=== PATIENT | female | born 1960 | race Caucasian/White ===

== ENCOUNTER 2016-05-04 08:33 | Day surgery (SDC) | payer OTHER ==
[2016-05-03 13:34] VITALS: BMI 28.9
[2016-05-04] VITALS (11 sets, daily range): BP systolic 104–138; BP diastolic 56–84; PULSE 64–108; RESP 11–19; Ht 149.9 cm; Wt 63.6 kg
[~2016-05-04] VITALS: Ht 149.9 cm; Wt 63.6 kg
--- NOTE | 2016-05-04 08:05 | PREOPHP ---
DATE OF ADMISSION: 05/04/2016 HISTORY OF PRESENT ILLNESS: This 56-year-old patient is admitted for cataract surgery of a mature c ataract in the right eye. The patient has had poor vision in the right eye over the past 3 years th at the patient has been seen in my office patient. The patient and caregiver deny any prior history of eye disease or injury. The patient does have a history of Down syndrome, non-insulin dependent d iabetes mellitus, hypothyroid and gallstones. CURRENT MEDICATIONS INCLUDE: 1. Metformin. 2. Prilosec. 3. Levothyroxine. ALLERGIES: THERE ARE NO KNOWN ALLERGIES. PHYSICAL EXAMINATION: The visual acuity is light perception in the right eye and finger counting at 15 feet in the left eye. Slit lamp examination reveals a mature cataract in the right eye. Examin ation of the retina in the right eye is obscured by the mature cataract. The left eye appears withi n normal limits. DIAGNOSIS: Mature cataract, right eye. PLAN: Cataract extraction with lens implant, right eye. This surgery will be performed under gener al anesthesia. The risks and alternatives to the surgery have been discussed with the patient and rinku valente has opted to proceed with surgery. Dictated By: CLEMENTINA SMITH/OTILIO Conf#: [id number] DID#: [id number]
[~2016-05-04 08:33] MED LIST: FLUT16SP24 NASAL; LEVO50TA83 PO; METF500T4 PO; OMEP20CA16 PO
[2016-05-04] MEDS ORDERED: DIPHENHYDRAMINE 50 MG INJ IV PRN (10:30)
[2016-05-04] MEDS ORDERED: ONDANSETRON 4 MG INJ IV PRN (10:30)
[2016-05-04] MEDS ORDERED: OXYCODONE/ACETAMINOPHEN (5/325) TAB PO PRN ×2 (10:30)
[2016-05-04] MEDS ORDERED: FENTAnyl 50 MCG/ML VIAL IV PRN ×2 (10:30)
[2016-05-04] MEDS ORDERED: morphine (1 MG/ML) 10ML SYRINGE IV PRN ×3 (10:30)
[2016-05-04] MEDS ORDERED: hydrALAzine 20 MG INJ IV PRN (10:30)
[2016-05-04] MEDS ORDERED: MEPERIDINE 25 MG INJ IV PRN (10:30)
[2016-05-04] MEDS ORDERED: MIDAZOLAM 1 MG/ML 2 ML INJ IV PRN (10:30)
[2016-05-04] MEDS ORDERED: TROPICAMIDE 1% 2 ML OPH OPER SCH (10:30)
[2016-05-04] MEDS ORDERED: ATROPINE 1 MG/10 ML SYRINGE IV PRN (10:30)
[2016-05-04] MEDS ORDERED: CIPROFLOXACIN 0.3% 2.5 ML OPH OPER SCH (10:30)
[2016-05-04] MEDS ORDERED: DICLOFENAC 0.1% 2.5 ML OPH OPER SCH (10:30)
[2016-05-04] MEDS ORDERED: HYDROmorphONE (0.2 MG/ML) 10ML SYG IV PRN ×3 (10:30)
[2016-05-04] MEDS ORDERED: EPHEDrine SULFATE 50 MG/5 ML SYG IV PRN (10:30)
[2016-05-04] MEDS ORDERED: CYCLOPENTOLATE/PHENYLEPH 2 ML OPH OPER SCH (10:30)
[2016-05-04] MEDS ORDERED: PROPOFOL 20 ML ONE (12:08)
[2016-05-04] MEDS ORDERED: LIDOCAINE 2% (SDV) 5 ML INJ ONE (12:08)
[2016-05-04] MEDS ORDERED: GLYCOPYRROLATE 0.4 MG INJ ONE (12:08)
[2016-05-04] MEDS ORDERED: NEOSTIGMINE 3 MG/3 ML SYRINGE ONE (12:08)
[2016-05-04] MEDS ORDERED: ROCURONIUM 50 MG INJ ONE (12:08)
[2016-05-04] MEDS ORDERED: MIDAZOLAM 1 MG/ML 2 ML INJ ONE (12:09)
[2016-05-04] MEDS ORDERED: FENTAnyl 50 MCG/ML VIAL ONE (12:09)
[2016-05-04] MEDS ORDERED: CARBACHOL 0.01% 1.5 ML OPH INJ INJ ONE (12:50)
[2016-05-04] MEDS ORDERED: CEFAZOLIN 1 GM INJ INJ ONE (12:50)
[2016-05-04] MEDS ORDERED: DEXAMETHASONE 4 MG/ML 1 ML INJ INJ ONE (12:50)
[2016-05-04] MEDS ORDERED: HYALURONATE/CHONDROITIN 1ML OPH INJ ONE (13:12)
[2016-05-04] MEDS ORDERED: DEXAMETHASONE 4 MG/ML 1 ML INJ ONE (13:12)
[2016-05-04] MEDS ORDERED: LIDOCAINE 4% (MPF) 5 ML INJ ONE (13:12)
[2016-05-04] MEDS ORDERED: CARBACHOL 0.01% 1.5 ML OPH INJ ONE (13:12)
--- NOTE | 2016-05-04 14:57 | OPR ---
DATE OF OPERATION: 05/04/2016 PREOPERATIVE DIAGNOSIS: Mature cataract, right eye. POSTOPERATIVE DIAGNOSIS: Mature cataract, right eye. SURGEON: Clementina Kyle MD COMMUNITY SUPPORT ASSOCIATE: ANESTHESIA: General. ANESTHESIOLOGIST: Dr. Cullen OPERATION: Cataract extraction with lens implants, right eye. PROCEDURE: The patient was brought to the operating room on an eye gurney, attached to monitors, an d then given general anesthesia via endotracheal intubation. Following this, patient was positioned for cataract surgery. After some intravenous sedation was administered, local anesthesia was given using Xylocaine 2% with epinephrine, mixed with Marcaine 0.5%. This was given in a lid block and retrobulbar injection. The patient was then prepped and draped in the usual sterile manner. A wire lid speculum was inserted between the lids of the right eye. A SuperBlade was used to enter t he anterior chamber at the corneoscleral limbus at the 10:30 o'clock position. A separate incision w as made using a 3.0-mm keratome which entered the corneoscleral junction at the 12 o'clock position. Through this 3-mm opening, an irrigating cystotome was introduced into the anterior chamber. The ch jamie was filled with Viscoat and an anterior capsulotomy was performed. Balanced salt solution was then used for hydrodissection of the lens. A phacoemulsification was attempted; however, it was not ed that there was a solid nucleus which did not respond to the higher setting of ultrasonic power to emulsify the lens nucleus. It was, therefore, decided to open the corneal incision to approximatel y 7 mm and then use a lens loop to remove the mature cataract en bloc. Following this, 3 peripheral 10-0 nylon sutures were placed and were tied. The ends were cut short. After this, attention was paid to residual lens cortical material which was aspirated using irrigation/aspiration setting. Th e central posterior capsule appeared clear, and at this point, the posterior chamber intraocular devang s measuring 23.5 diopters ([employer] model LI61AO) was inserted under DisCoVisc in to the posterior chamber with the lens haptics placed beneath the lens capsule. The lens centered w ell and remained stable. A 4th 10-0 nylon suture was then placed across the wound and was tied with the ends cut short. All the nylon sutured knots were buried in the cornea. At the end of the proc edure, Miostat was instilled to constrict the pupil, and then 0.5 mL of Ancef and 0.5 mL of dexameth asone were injected into the subconjunctival space inferiorly. The speculum was removed. Vigamox d rops placed on the surface of the eye, and the eye was patched. The patient left the operating room in satisfactory condition. Dictated By: CLEMENTINA SMITH/OTILIO Conf#: [id number] DID#: [id number]
[2016-05-04] MEDS ORDERED: LABETALOL HCL 20MG INJ IV PRN (15:00)
== END 2016-05-04 14:50 | disposition home or self-care (01) ==
LOC: SDS 08:33
PROVIDERS: ATTEND Ophthalmology
DX: H26.8 Other specified cataract (principal); E03.9 Hypothyroidism, unspecified; E11.9 Type 2 diabetes mellitus without complications
CPT/HCPCS: 66984; 82962; J0690; J1100; J2250; J2710; J3010; V2632; Z7512; Z7610

== ENCOUNTER 2018-04-18 05:54 | Day surgery (SDC) | payer OTHER ==
[2018-04-14 17:58] VITALS: Ht 149.9 cm; Wt 60.9 kg
--- NOTE | 2018-04-17 12:36 | PREOPHP ---
DATE OF ADMISSION: 04/18/2018 HISTORY OF PRESENT ILLNESS: This 58-year-old patient is admitted for elective cataract surgery of th e left eye. This patient is a Down syndrome patient who has had a mature cataract in both eyes with the right eye operated on 2 years ago with a good visual result. The patient does not have any other history of eye disease or injury. PAST MEDICAL HISTORY: The patient's other medical problems include GERD, hypothyroidism, allergic rh initis and Down syndrome. PRESENT MEDICATION: Include: 1. Fluticasone nasal suspension. 2. Levothyroxine. 3. Metformin. 4. Omeprazole. ALLERGIES: THERE ARE NO KNOWN ALLERGIES. PHYSICAL EXAMINATION: Visual acuity is difficult to ascertain, but patient has ability to discern mo derate size print with the right eye. The left eye has light perception vision. Slit lamp examinati on reveals a posterior chamber intraocular lens in the right eye and a mature cataract in the left ey e. Applanation tonometry is 12 mm. Examination of the retina in the right eye is within normal limi ts. In the left eye, there is no view. DIAGNOSIS: Mature cataract, left eye. PLAN: Cataract extraction with lens implant of left eye to be done under general anesthesia. The ri sks and alternatives to the surgery have been discussed with the patient's family and the patient and they have agreed to proceed with surgery in hopes of improving visual acuity leading to greater abil ity to perform activities of daily living. Dictated By: CLEMENTINA SMITH/OTILIO Conf#: [id number] DID#: [id number]
[~2018-04-18] VITALS: Ht 149.9 cm; Wt 60.9 kg
[2018-04-18] VITALS (13 sets, daily range): BP systolic 80–110; BP diastolic 42–67; PULSE 77–96; RESP 13–18
[~2018-04-18 05:54] MED LIST changes: -LEVO50TA83 PO; +LEVO50TA89 PO; +METF-849 PO; -METF500T4 PO
[2018-04-18] MEDS ORDERED: SOD CHLORIDE 0.9% 1,000 ML IV SCH (06:00)
[2018-04-18] MEDS ORDERED: TROPICAMIDE 1% 15 ML OPH OPER SCH (06:00)
[2018-04-18] MEDS ORDERED: MOXIFLOXACIN 0.5% 3 ML OPH OPER SCH (06:00)
[2018-04-18] MEDS ORDERED: CYCLOPENTOLATE/PHENYLEPH 2 ML OPH OPER SCH (06:00)
[2018-04-18] MEDS ORDERED: DICLOFENAC 0.1% 2.5 ML OPH OPER SCH (06:00)
[2018-04-18] MEDS ORDERED: TETRACAINE 0.5% 4 ML OPH ONE (06:44)
[2018-04-18] MEDS ORDERED: CARBACHOL 0.01% 1.5 ML OPH INJ ONE (06:44)
[2018-04-18] MEDS ORDERED: EPINEPHrine 1 MG INJ ONE (06:45)
[2018-04-18] MEDS ORDERED: DEXAMETHASONE 4 MG/ML 1 ML INJ ONE (06:45)
[2018-04-18] MEDS ORDERED: GENTAMICIN 80 MG INJ ONE (06:45)
[2018-04-18] MEDS ORDERED: LIDOCAINE 4% (MPF) 5 ML INJ ONE (06:46)
[2018-04-18] MEDS ORDERED: EPHEDrine SULFATE 50 MG/5 ML SYG ONE (07:00)
[2018-04-18] MEDS ORDERED: SEVOFLURANE 15 MIN ONE (07:00)
--- NOTE | 2018-04-18 07:32 | PREAC ---
Date/Time of Note Date/Time of Note DATE: 04/18/18 TIME: 07:29 Anesthesia Eval and Record Evaluation Time Pre-Procedure Interview DATE: 04/18/18 TIME: 07:20 Age 58 Sex female NPO: 8 hrs Preoperative diagnosis Left Eye Cataract Planned procedure Left Eye Cataract Extraction Past Medical History Past Medical History: Includes Endo: Diabetes, Hypothyroid Neuro: Other (metal retardation) GI: GERD Psych: Anxiety Surgery & Anesthesia Issues No known issue Meds Anticoagulation: No Beta Román within 24 hr: No Reason Beta Román not given: Pt. not on B-Román Reported Medications Fluticasone Propionate* (Flonase* Nasal) 16 Gm [place].susp, 2 SPRAY NASAL DAILY, SPRAY TO EACH NOSTRIL 09/24/13 Levothyroxine Sodium* (Synthroid*) 50 Mcg Tablet, 50 MCG PO AC BREAKFAST, TAB 09/24/13 Metformin* (Glucophage*) 500 Mg Tab, 500 MG PO WITH BREAKFAST, TAB 09/24/13 Omeprazole* (Omeprazole*) 20 Mg Capsule.dr, 20 MG PO DAILY 09/24/13 Current Medications Diclofenac Sodium (Voltaren 0.1%) 1 drop Q5 MIN X 3 OPER Last administered on 04/18/18at 06:35; Admin Dose 1 DROP; Start 04/18/18 at 06:00 Tropicamide (Mydriacyl 1%) 1 drop Q5 MIN X3 OPER Last administered on 04/18/18at 06:35; Admin Dose 1 DROP; Start 04/18/18 at 06:00 Moxifloxacin HCl (Vigamox) 1 drop Q5 MIN X 3 OPER Last administered on 04/18/18at 06:35; Admin Dose 1 DROP; Start 04/18/18 at 06:00 Cyclopentolate/ Phenylephrine (Cyclomydril Oph 2 ml) 1 drop Q5 MIN X 3 OPER Last administered on 04/18/18at 06:34; Admin Dose 1 DROP; Start 04/18/18 at 06:00 Sodium Chloride 1,000 ml @ 25 mls/hr Q24H IV Last administered on 04/18/18at 06:36; Admin Dose 25 MLS/HR; Start 04/18/18 at 06:00 Meds reviewed: Yes Allergies Coded Allergies: No Known Allergy (Unverified , 04/18/18) Allergies Reviewed: Yes Labs/Studies Labs Reviewed: Reviewed by anesthesiologist test: N/A Studies: ECG (n/a), CXR (n/a) Pre-procedure Exam Last vitals Vital Signs Date Temp Pulse Resp B/P (MAP) Pulse Ox O2 O2 Flow FiO2 Time Delivery Rate 04/18/18 98.1 77 18 110/67 98 Room Air 06:07 (81) Airway: Adequate mouth opening, Adequate thyromental dist Mallampati: Mallampati II Teeth: Normal Lung: Normal Heart: Normal ASA Physical Status ASA physical status: 3 Emergency: None Planned Anesthetic General/MAC: LMA Planned Pain Management Parenteral pain med Pre-operative Attestations Prior to commencing anesthesia and surgery, the patient was re-evaluated, there was verification of: *The patient's identity *The results of appropriate recent lab work and preoperative vital signs *The above evaluation not changing prior to induction *Anesthetic plan, risk benefits, alternative and complications discussed with patient/family; questions answered; patient/family understands, accepts and wishes to proceed. AMBER CARRINGTON MD Apr 18, 2018 07:32
[2018-04-18] MEDS ORDERED: PROPOFOL 20 ML ONE (07:36)
[2018-04-18] MEDS ORDERED: MIDAZOLAM 1 MG/ML 2 ML INJ ONE (07:37)
[2018-04-18] MEDS ORDERED: FENTAnyl 50 MCG/ML VIAL ONE (07:37)
[2018-04-18] MEDS ORDERED: PHENYLephrine (100 MCG/ML) 5ML SYG ONE (07:44)
[2018-04-18] MEDS ORDERED: METOCLOPRAMIDE 10 MG INJ ONE (07:54)
[2018-04-18] MEDS ORDERED: ONDANSETRON 4 MG INJ ONE (07:54)
[2018-04-18] MEDS ORDERED: ONDANSETRON 4 MG INJ IV PRN (08:00)
[2018-04-18] MEDS ORDERED: EPHEDrine SULFATE 50 MG/5 ML SYG IV PRN (08:00)
[2018-04-18] MEDS ORDERED: LABETALOL HCL 20MG INJ IV PRN (08:00)
[2018-04-18] MEDS ORDERED: FENTAnyl 50 MCG/ML VIAL IV PRN ×2 (08:00)
[2018-04-18] MEDS ORDERED: OXYCODONE/ACETAMINOPHEN (5/325) TAB PO PRN (08:00)
[2018-04-18] MEDS ORDERED: MEPERIDINE 25 MG INJ IV PRN (08:00)
[2018-04-18] MEDS ORDERED: METOCLOPRAMIDE 10 MG INJ IV PRN (08:00)
[2018-04-18] MEDS ORDERED: HYDROmorphONE 1 MG/5 ML IV SYRINGE IV PRN ×2 (08:00)
--- NOTE | 2018-04-18 08:14 | SIPON ---
Date/Time of Note Date/Time of Note DATE: 04/18/18 TIME: 08:13 Operative Report Preoperative Diagnosis mature cataract os Postoperative Diagnosis same Operation/Procedure Performed cataractg extraction wsith lens implant os Surgeon clementina gomez hotel assistant manager none Anesthesia: general Estimated blood loss: none Transfusion Required none Specimen none Grafts/Implants posterior chamber lens implant os Complications none CLEMENTINA GOMEZ MD Apr 18, 2018 08:14
--- NOTE | 2018-04-18 08:16 | PAC ---
Date/Time of Note Date/Time of Note DATE: 04/18/18 TIME: 08:15 Post-Anesthesia Notes Post-Anesthesia Note Last documented vital signs Vital Signs Date Temp Pulse Resp B/P (MAP) Pulse Ox O2 O2 Flow FiO2 Time Delivery Rate 04/18/18 98.1 77 18 110/67 98 Room Air 08:17 (81) Activity: WNL Respiratory function: WNL Cardiovascular function: WNL Mental status: Baseline Pain reasonably controlled: Yes Hydration appropriate: Yes Nausea/Vomiting absent: Yes AMBER CARRINGTON MD Apr 18, 2018 08:16
[2018-04-18] MEDS ORDERED: CEFAZOLIN 1 GM INJ INJ ONE (08:52)
--- NOTE | 2018-04-18 12:58 | OPR ---
DATE OF OPERATION: 04/18/2018 PREOPERATIVE DIAGNOSIS: Mature cataract, left eye. POSTOPERATIVE DIAGNOSIS: Mature cataract, left eye. OPERATION PERFORMED: Cataract extraction with lens implant, left eye. SURGEON: Clementina Kyle MD. ANESTHESIA: General anesthesia. PROCEDURE: The patient was brought to the operating room and placed on the table with an IV in place and the patient attached to an color television console monitor. Oxygen was given via face mask. After some intravenous sedation was administered, local anesthesia was given using Xylocaine 2% with epinephrine, mixed with Marcaine 0.5%. This was given in a lid block and retrobulbar injection. The p atient was then prepped and draped in the usual sterile manner. A wire lid speculum was inserted between the lids of the left eye. A Superblade was used to enter the anterior chamber at the corneoscleral limbus at the 10:30 o'clock position. A separate incision was made using a 3.0-mm keratome which entered the corneoscleral junction at the 12 o'clock position. Thr ough this 3-mm opening, an irrigating cystotome was introduced into the anterior chamber. The chamber was filled with Viscoat and an anterior capsulotomy was performed. Balanced salt solution was then u sed for hydrodissection of the lens. A phacoemulsification handpiece was then brought into the field and introduced into the anterior chamber. The lens nucleus was emulsified using a deep groove and cr acking the nucleus into quadrants. Following this, each quadrant was aspirated and emulsified at the pupillary margin. After this was completed, the irrigation/aspiration handpiece was brought to the field, introduced in to the posterior chamber, and the lens cortical material was removed. When this was completed, additi onal Viscoat was injected into the anterior and posterior chambers. The 3-mm opening had its internal lips enlarged, and then the posterior chamber intraocular lens alicia uring 23.5 diopters ([employer] Model LI61AO) was then injected into the posterior c hamber using the lens injector system. After the leading haptic was introduced into the capsular bag and the lens optic was present in the center of the eye, the injector was removed and the trailing antonio ptic was grasped with non-toothed forceps and introduced into the capsular fold superiorly. A Sinskey hook was then used to rotate the intraocular lens so that the lips were oriented in the horizontal m eridian. One 10-0 nylon suture was placed across the wound. Prior to tying, the irrigation/aspiration handpiece was reintroduced into the anterior chamber to rem ove the Viscoat. Miochol was instilled to constrict the pupil, and then the 10-0 nylon suture was tie d. The ends were cut short and then the knot was buried. Then, 0.5 mL of dexamethasone and 0.5 mL of Ancef were injected into the sub-[place]on space in the infer ior fornix. Ciloxan drops were then placed on the surface of the eye. The speculum was removed and a patch was applied. The patient was extubated and left the operating room in satisfactory condition. Dictated By: CLEMENTINA SIMTH/OTILIO Conf#: [id number] DID#: [id number]
== END 2018-04-18 10:05 | disposition home or self-care (01) ==
LOC: SDS 05:54
PROVIDERS: ATTEND Ophthalmology
DX: H26.8 Other specified cataract (principal); E11.9 Type 2 diabetes mellitus without complications; Q90.9 Down syndrome, unspecified
CPT/HCPCS: 66984; 82962; J0171; J0690; J1100; J1170; J1580; J2250; J2370; J2405; J2765; J3010; V2632; Z7512; Z7610

== ENCOUNTER 2018-08-19 21:14 | Emergency (ER) | payer OTHER ==
[~2018-08-19] VITALS: Wt 60.5 kg
--- NOTE | 2018-08-19 21:37 | ERD ---
ER Documentation Chief Complaint Chief Complaint PT INGESTED APPROX 20 ML EUCALYPTUS OIL AT HOME HPI This is a 58-year-old female presents for evaluation of about 20 mL's of eucalyptus oil, which she ingested at home, thinking with cough syrup. Happened about an hour ago, she had no vomiting, no abdominal pain, otherwise she is doing well. ROS All systems reviewed and are negative except as per history of present illness. Medications Home Meds Reported Medications Fluticasone Propionate* (Flonase* Nasal) 16 Gm [place].susp, 2 SPRAY NASAL DAILY, SPRAY TO EACH NOSTRIL 09/24/13 Levothyroxine Sodium* (Synthroid*) 50 Mcg Tablet, 50 MCG PO AC BREAKFAST, TAB 09/24/13 Metformin* (Glucophage*) 500 Mg Tab, 500 MG PO WITH BREAKFAST, TAB 09/24/13 Omeprazole* (Omeprazole*) 20 Mg Capsule.dr, 20 MG PO DAILY 09/24/13 Allergies Allergies: Coded Allergies: No Known Allergy (Unverified , 04/18/18) PMhx/Soc History of Surgery: Yes (CATARACT OD, LAP. PARAM) Anesthesia Reaction: No Hx Neurological Disorder: No Hx Respiratory Disorders: No Hx Cardiac Disorders: No Hx Psychiatric Problems: No Hx Miscellaneous Medical Probl: Yes (DOWNS SYNDROME) Hx Alcohol Use: No Hx Substance Use: No Hx Tobacco Use: No Physical Exam Vitals Vital Signs Date Temp Pulse Resp B/P (MAP) Pulse Ox O2 O2 Flow FiO2 Time Delivery Rate 08/19/18 98.4 74 18 92/59 (70) 95 21:20 Physical Exam Const: No acute distress Head: Atraumatic Eyes: Normal Conjunctiva ENT: Normal External Ears, Nose and Mouth. Neck: Full range of motion. No meningismus. Resp: Clear to auscultation bilaterally Cardio: Regular rate and rhythm, no murmurs Abd: Soft, non tender, non distended. Normal bowel sounds Skin: No petechiae or rashes Back: No midline or flank tenderness Ext: No cyanosis, or edema Neur: Awake and alert Psych: Normal Mood and Affect Procedures/MDM This is a 58-year-old female presents for evaluation of accidental ingestion. I spoke with poison control, who recommended symptom control, and observation for 4 hours postingestion, no laboratory work is indicated at this time, will continue to monitor patient. Total 9 AM: Patient continued to be asymptomatic, at this point she is stable for discharge home, discussed plan of care with patient and family at discharge patient in no distress. Departure Diagnosis: Primary Impression: Drug ingestion, accidental Encounter type: initial encounter Qualified Codes: T50.901A - Poisoning by unspecified drugs, medicaments and biological substances, accidental (unintentional), initial encounter Condition: Stable NATHALY CHAN MD August 19, 2018 21:37
[2018-08-20 00:32] VITALS: BP 113/61; PULSE 66; RESP 20
== END 2018-08-20 00:33 | disposition home or self-care (01) ==
LOC: E/R 21:14
DX: T49.7X1A Poisoning by dental drugs, topically applied, accidental (unintentional), initial encounter (principal); R40.2142 Coma scale, eyes open, spontaneous, at arrival to emergency department; R40.2352 Coma scale, best motor response, localizes pain, at arrival to emergency department; R40.2252 Coma scale, best verbal response, oriented, at arrival to emergency department; Z79.84 Long term (current) use of oral hypoglycemic drugs
CPT/HCPCS: 99282